=== PATIENT | male | born 1980 | race Caucasian/White ===

== ENCOUNTER → 2019-06-08 | Outpatient (CLI) | payer BC, SELFPAY ==
[2019-06-07 14:26] VITALS: BMI 25.8
== END | disposition home or self-care (01) ==
LOC: LABSPEC 14:29
PROVIDERS: Referring Provider Physician Assistant; Visit Provider Physician Assistant
DX: J02.9 Acute pharyngitis, unspecified (principal)
CPT/HCPCS: 87070; 87077